=== PATIENT | male | born 1980 | race Caucasian/White ===

== ENCOUNTER 2021-06-30 13:13 | Emergency (ER) | payer OTHER, SELFPAY ==
--- NOTE | ~2021-06-30 | CT_ITS ---
EXAMINATION: CT abdomen pelvis wo con DATE: 06/30/2021 16:54 INDICATION: Bilateral flank pain. Kidney stone. TECHNIQUE: Computed tomography (CT) of the abdomen and pelvis was performed without intravenous contr ast. Automated exposure control and iterative reconstruction technique were employed. The dose-length product was 333.16 mGy-cm. COMPARISON: None. FINDINGS: The visualized portions of the lung bases demonstrate a calcified right lower lobe nodule a nd calcified paraesophageal lymph node, consistent with old granulomatous disease. No pleural effusio n. The heart size is normal. No pericardial effusion. The liver, gallbladder, spleen, pancreas, adren al glands, and left kidney are normal. There is a 5 mm stone in right kidney. No hydronephrosis. Ther e are no dilated loops of bowel. The appendix is normal. There are no pathologically enlarged lymph n odes. There is no free intraperitoneal fluid. There is moderate lumbar spondylosis. There is a chroni c left L5 pars defect. IMPRESSION: 1. 5 mm nonobstructing right kidney stone. Reviewed, dictated and finalized at location A.
[2021-06-30 13:33] LABS: Basophils Percent Auto 0.5 % (0.2-1.2); Eosinophils Absolute Auto 0.1 K/mm3 (0-0.3); Eosinophils Percent Auto 1.5 % (0-4.4); Hematocrit 48.7 % (42.0-52.0); Hemoglobin 16.1 g/dL (14.0-18.0); Immature Granulocyte Absolute 0.04 K/mm3 (0.00-0.031); Immature Granulocyte Percent A 0.5 % (0-0.5); Lymphocytes Absolute Auto 2.24 K/mm3 (0.9-3.2); Lymphocytes Percent Auto 28.1 % (18.3-44.2); Mean Corpuscular HGB Conc 33.1 g/dl (32-36); Mean Corpuscular Hemoglobin 29.9 pg (26-34); Mean Corpuscular Volume 90.5 fl (80-100); Mean Platelet Volume 8.5 fl (7.4-10.4); Monocytes Absolute Auto 0.5 K/mm3 (0.1-0.6); Monocytes Percent Auto 6.8 % (2.6-8.5); Neutrophils Percent Auto 62.6 % (45.5-73.1); Platelet Count Result 206 k/mm3 (150-375); Red Blood Count 5.38 M/mm3 (4.6-6.20); Red Cell Distribution Width 13.2 % (11.5-14.5)
[2021-06-30 13:35] VITALS: BP 136/96; PULSE 57; RESP 14; TEMP 37; O2SAT 99
[2021-06-30 13:55] LABS: Add Urine Microscopic? YES; Appearance Urine Clear (Clear); Bilirubin Urine Negative (Negative); Blood Urine Negative (Negative); Color Urine Yellow (Yellow); Glucose Urine UA Negative (Negative); Ketones Urine Negative (Negative); Leukocyte Esterase Ur Negative LEU/UL (Negative); Mucus Urine Rare /lpf; Nitrate Urine Negative (Negative); Protein Urine Negative (Negative); RBC Urine 0-2 /hpf (0-2); Squamous Epithelial Cell Urine Rare /hpf (Few); WBC Urine 0-3 /hpf
[2021-06-30 14:16] LABS: Anion Gap 8 mmol/L (8-16); Blood Urea Nitrogen 20 mg/dL (9-20); Calcium 9.6 mg/dL (8.4-10.2); Carbon Dioxide 26 mmol/L (22-30); Chloride 105 mmol/L (98-107); Estimated CRCL calculation 110 ml/min; Estimated Glomerular Filt Rate > 60; Glucose 95 mg/dL (65-110); Potassium 4.3 mmol/L (3.4-5.0); Sodium 139 mmol/L (137-145)
[2021-06-30 16:34] VITALS: BP 141/95; PULSE 58; RESP 18; O2SAT 99
--- NOTE | 2021-06-30 16:48 | PC.NURSE ---
Pt taken to CT at this time
--- NOTE | 2021-06-30 17:34 | ED.ABDPAIN ---
HPI - Abdominal Pain General Chief Complaint: Abdominal Pain Stated Complaint: abd pain Time Seen by Provider: 06/30/21 16:40 Source: patient Mode of arrival: ambulatory Limitations: no limitations History of Present Illness HPI narrative: Patient is 41 years old white male presented to the ED with diffuse pain on the right flank area started 2 weeks ago, gradually started going to the left flank area, positional, worse with certain movement, better with certain position, associated with nausea. Patient denies any fever, chills, vomiting, urinary symptoms. 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 Patient is a smoker, denies any drinking or using drugs. History of depression and benign prostatic hypertrophy. 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 Related Data Home Medications Medication Instructions Recorded Confirmed buprenorphine-naloxone film 06/30/21 escitalopram oxalate mg 06/30/21 fluconazole 06/30/21 Allergies Allergy/AdvReac Type Severity Reaction Status Date / Time No Known Allergies Allergy Verified 06/30/21 16:36 Review of Systems Review of Systems: CONSTITUTIONAL: Denies fever, chills, or sweats. EYES: Denies visual changes, redness, or discharge. ENT: Denies rhinorrhea, congestion, sore throat, or otalgia. CARDIOVASCULAR: Denies chest pain, palpitations, or edema. RESPIRATORY: Denies cough or dyspnea. GASTROINTESTINAL: Denies abdominal pain, nausea, vomiting, or diarrhea. GENITOURINARY: Denies dysuria or hematuria. SKIN: Denies rash or itching. MUSCULOSKELETAL: Denies back pain, joint pain, or myalgia. NEUROLOGIC: Denies headache, numbness, or weakness. PSYCHIATRIC: Denies anxiety or depression. Exam Narrative: General appearance: Well-developed, well-nourished Skin: Normal color Head: Normocephalic, nontraumatic Eyes: Clear conjunctiva ENT: Oropharynx normal, ears normal, nose normal Neck: Supple, nontender Chest and respiratory: Airway patent, no respiratory distress, no accessory muscle use Heart: Regular rate/rhythm Abdomen: Soft, diffuse abdominal tenderness, slight guarding, no rebound, quiet bowel sounds, mild tenderness right flank. And also across lumbar area. No bruises, no swelling, no rash Vascular: Normal peripheral pulses, normal capillary refill. Musculoskeletal: Normal range of motion, nontender back Neurologic: Alert and oriented ?3, NUCLEAR MEDICINE CHIEF TECHNOLOGIST is normal as tested, no gross motor deficit Course Course Emergency Course: Stable Vital Signs Vital signs: Vital Signs Temperature 37.0 C 06/30/21 13:35 Pulse Rate 57 L 06/30/21 13:35 Respiratory Rate 14 06/30/21 13:35 Blood Pressure 136/96 H 06/30/21 13:35 Pulse Oximetry 99 06/30/21 13:35 Temperature 37.0 C 06/30/21 13:35 Pulse Rate 58 L 06/30/21 16:34 Respiratory Rate 18 06/30/21 16:34 Blood Pressure 141/95 H 06/30/21 16:34 Pulse Oximetry 99 06/30/21 16:34 MDM - Abdominal Pain MDM Narrative Medical decision making narrative: My differential diagnosis of musculoskeletal pain, urinary tract infection, diverticulitis, intra-abdominal pathology. Labs, IV fluid, CT abdomen pelvis without contrast ordered. Further plan to follow. Work-up, UA, CT abdomen pelvis showed no acute abnormality to explain patient condition. Musculoskeletal pain is my diagnosis, patient works in [employer] with a lot of physical activity and work. Differential Diagnosis Differential diagnosis: Likely abdominal pain, calculus of kidney, constipation, diverticulitis and pancreatitis Lab Data Result diagrams: 06/30/21 13:26 06/30/21 13:26 Labs: Lab Results 06/30/21 06/30/21 06/30/21 Range/Units 13:26 13:26 13:3
[2021-06-30 18:09] VITALS: BP 142/95; PULSE 58; RESP 18; O2SAT 99
== END 2021-06-30 18:11 | disposition home or self-care (01) ==
PROVIDERS: Emergency Medicine; Emergency Provider Emergency Medicine
DX: M54.9 Dorsalgia, unspecified (principal); N40.0 Benign prostatic hyperplasia without lower urinary tract symptoms; F32.9 Major depressive disorder, single episode, unspecified; F17.200 Nicotine dependence, unspecified, uncomplicated; N20.0 Calculus of kidney
CPT/HCPCS: 36415; 74176; 80048; 81001; 85025; 99284

== ENCOUNTER 2021-09-17 10:15 | Emergency (ER) | payer OTHER, SELFPAY ==
--- NOTE | ~2021-09-17 | XR_ITS ---
EXAMINATION: XR finger 4th LT min 2V DATE: 09/17/2021 10:35 INDICATION: Laceration to the left fourth digit TECHNIQUE: Dorsal palmar, lateral and 2 oblique views of the left fourth digit were obtained COMPARISON: None FINDINGS: Alignment is normal. No fracture. Joint spaces are normal. Soft tissue swelling about the base of the fourth digit with surrounding bandaging material. No radiopaque foreign bodies. IMPRESSION: 1. No osseous abnormality or radiopaque foreign body Reviewed, dictated and finalized at location A.
[2021-09-17 10:18] VITALS: BP 138/90; PULSE 89; RESP 18; TEMP 36.4; O2SAT 98
[2021-09-17] MEDS: IBUPROFEN 600 MG TABLET PO (10:44)
--- NOTE | 2021-09-17 11:59 | ED.GENADULT ---
HPI - General Adult General Chief complaint: Wound/Laceration <DEIDRE Nichols Last Filed: 09/17/21 12:08> Stated complaint: logsplitter injury <DEIDRE Nichols Last Filed: 09/17/21 12:08> Time Seen by Provider: 09/17/21 10:25 <DEIDRE Nichols Last Filed: 09/17/21 12:08> Source: patient and RN notes reviewed <DEIDRE Nichols Last Filed: 09/17/21 12:08> Mode of arrival: ambulatory <DEIDRE Nichols Last Filed: 09/17/21 12:08> Limitations: no limitations <DEIDRE Nichols Last Filed: 09/17/21 12:08> History of Present Illness HPI narrative: Patient is a 41-year-old male who presents to emergency department for evaluation of injury to the left ring finger that occurred just prior to arrival he had his finger caught in a log splitter sustaining laceration patient notes his tetanus is not up-to-date he notes pain involving the ring finger and just proximal of the ring finger on the palmar and dorsal surfaces patient denies other injuries or complaints presents nondistressed has not had anything for pain is requesting nonnarcotic pain medication with history of IV opiate abuse <DEIDRE Nichols Last Filed: 09/17/21 12:08> Related Data Home medications: Home Medications Medication Instructions Recorded Confirmed buprenorphine-naloxone film 06/30/21 escitalopram oxalate mg 06/30/21 fluconazole 06/30/21 <DEIDRE Nichols Last Filed: 09/17/21 12:08> Allergies/adverse reactions: Allergies Allergy/AdvReac Type Severity Reaction Status Date / Time No Known Allergies Allergy Verified 06/30/21 16:36 <DEIDRE Nichols Last Filed: 09/17/21 12:08> Review of Systems Review of Systems: All systems reviewed & are unremarkable except as noted in HPI and below <DEIDRE Nichols Last Filed: 09/17/21 12:08> Exam Narrative: GENERAL: Well-appearing, well-nourished, and in no acute distress. HEAD: Normocephalic, atraumatic. EYES: PERRLA and EOMI. ENT: Nares clear, no rhinorrhea or epistaxis. Mucous membranes moist. EXTREMITIES: Normal range of motion. No edema. Patient is able to extend and flex the ring finger without difficulty patient with flap laceration dorsal surface of the left ring finger proximal phalanx patient notes some numbness but is neurovascularly intact on exam he also has a sprain SKIN: Warm, dry, no rash. Flap laceration proximal phalanx left ring finger NEURO: No focal deficits. Alert and oriented x3. Cranial nerves II through XII grossly intact. Neurovascularly intact PSYCH: Normal mood and affect. <Fernie Leal PA-C - Last Filed: 09/17/21 12:08> Course Course Emergency Course: Patient in the room nondistressed his wound was closed discussion was made with hand surgeon he will follow-up with hand surgery this Wednesday he is aware of case findings treatment plan and diagnosis he will be referred to hand surgeon for possible tendon injury even though he is able to flex and extend it does look like there was possible involvement of the extensor tendon. Provided with reasons to return tetanus was updated <Fernie Leal PA-C - Last Filed: 09/17/21 12:08> Consultations Consultation #1: Discussed case with the Dr. Whyte the hand surgeon and will follow patient in clinic on Wednesday <DEIDRE Nichols Last Filed: 09/17/21 12:08> Date: 09/17/21 <DEIDRE Nichols Last Filed: 09/17/21 12:08> Time: 12:05 <DEIDRE Nichols Last Filed: 09/17/21 12:08> Vital Signs Vital signs: Vital Signs Temperature 97.6 F 09/17/21 10:18 Pulse Rate 89 09/17/21 10:18 Respiratory Rate 18 09/17/21 10:18 Blood Pressure 138/90 09/17/21 10:18 Pulse Oximetry 98 09/17/21 10:18 Temperature 97.6 F 09/17/21 10:18 Pulse Rate 58 L 09/17/21 12:42 Respiratory Rate 18 09/17/21 12:42 Blood Pressure 126/89 09/17/21 12:42 Pul
[2021-09-17] MEDS: TETANUS,DIPHTHERIA,AC PERTUSSIS ADULT (0.5 ML) BOOSTRIX IM (12:37)
[2021-09-17 12:42] VITALS: BP 126/89; PULSE 58; RESP 18; O2SAT 98
== END 2021-09-17 12:44 | disposition home or self-care (01) ==
PROVIDERS: Emergency Provider General Practice
DX: S61.215A Laceration without foreign body of left ring finger without damage to nail, initial encounter (principal); W30.89XA Contact with other specified agricultural machinery, initial encounter; Z23 Encounter for immunization
CPT/HCPCS: 12001; 73140; 90471; 90715; 99283; A9270

== ENCOUNTER 2022-03-14 12:19 | Emergency (ER) | payer OTHER, SELFPAY ==
--- NOTE | ~2022-03-14 | CT_ITS ---
EXAMINATION: CT abdomen pelvis w con DATE: 03/14/2022 13:55 INDICATION: Left lower quadrant abdominal pain. TECHNIQUE: Computed tomography (CT) of the abdomen and pelvis was performed with 100 mL Omnipaque 350 intravenous contrast. Automated exposure control and iterative reconstruction technique were employe d. The dose-length product was 748.54 mGy-cm. COMPARISON: CT abdomen and pelvis 06/30/2021 FINDINGS: The portions of the lung bases demonstrate mild atelectasis. No pleural effusion. The heart size is normal. No pericardial effusion. The liver, gallbladder, spleen, pancreas, and adrenal gland s are normal. There are cysts in the kidneys measuring up to 7 mm on the left. There are two 3 mm sto julianna in right kidney. There are no dilated loops of bowel. The appendix is normal. There are no pathol ogically enlarged lymph nodes. There is no free intraperitoneal fluid. There is moderate lumbar spond ylosis and mild thoracic spondylosis. There is a chronic left L5 pars defect. IMPRESSION: 1. Nonobstructing right kidney stones. Reviewed, dictated and finalized at location A.
[2022-03-14 12:24] VITALS: BP 126/94; PULSE 69; RESP 16; TEMP 36.1; O2SAT 99
[2022-03-14 12:50] LABS: Basophils Percent Auto 0.4 % (0.2-1.2); Eosinophils Absolute Auto 0.1 K/mm3 (0-0.3); Eosinophils Percent Auto 1.8 % (0-4.4); Hematocrit 46.1 % (42.0-52.0); Hemoglobin 15.8 g/dL (14.0-18.0); Immature Granulocyte Absolute 0.02 K/mm3 (0.00-0.031); Immature Granulocyte Percent A 0.3 % (0-0.5); Lymphocytes Absolute Auto 1.57 K/mm3 (0.9-3.2); Lymphocytes Percent Auto 20.4 % (18.3-44.2); Mean Corpuscular HGB Conc 34.3 g/dl (32-36); Mean Corpuscular Hemoglobin 30.5 pg (26-34); Mean Platelet Volume 8.4 fl (7.4-10.4); Monocytes Absolute Auto 0.5 K/mm3 (0.1-0.6); Monocytes Percent Auto 6.7 % (2.6-8.5); Neutrophils Absolute Auto 5.4 K/mm3 (1.3-6.7); Neutrophils Percent Auto 70.4 % (45.5-73.1); Platelet Count Result 238 k/mm3 (150-375); Red Blood Count 5.18 M/mm3 (4.6-6.20); Red Cell Distribution Width 12.6 % (11.5-14.5); White Blood Count 7.7 K/mm3 (4.5-10.0)
[2022-03-14 12:58] LABS: Appearance Urine Clear (Clear); Bilirubin Urine Negative (Negative); Blood Urine Negative (Negative); Color Urine Yellow (Yellow); Glucose Urine UA Negative (Negative); Ketones Urine Negative (Negative); Leukocyte Esterase Ur Negative LEU/UL (Negative); Nitrate Urine Negative (Negative); Protein Urine Negative (Negative); Urobilinogen Urine 0.2 mg/dL (<2.0)
[2022-03-14 13:00] LABS: Alanine Aminotransferase 16 U/L (4-50); Albumin Level 4.4 g/dL (3.5-5.1); Alkaline Phosphatase 80 U/L (38-126); Anion Gap 5 mmol/L (8-16); Aspartate Amino Transferase 27 U/L (17-59); Bilirubin,Total 0.5 mg/dL (0.2-1.3); Blood Urea Nitrogen 17 mg/dL (9-20); Calcium 8.8 mg/dL (8.4-10.2); Carbon Dioxide 31 mmol/L (22-30); Chloride 101 mmol/L (98-107); Estimated CRCL calculation 122 ml/min; Estimated Glomerular Filt Rate > 60; Glucose 99 mg/dL (65-110); Lipase 45 U/L (23-300); Potassium 3.9 mmol/L (3.4-5.0); Sodium 137 mmol/L (137-145)
--- NOTE | 2022-03-14 13:15 | ED.ABDPAIN ---
HPI - Abdominal Pain General Chief Complaint: Abdominal Pain <DEIDRE Raymond Last Filed: 03/14/22 15:37> Stated Complaint: abdominal pain <DEIDRE Raymond Last Filed: 03/14/22 15:37> Time Seen by Provider: 03/14/22 12:31 <DEIDRE Raymond Last Filed: 03/14/22 15:37> Source: patient <DEIDRE Raymond Last Filed: 03/14/22 15:37> Mode of arrival: ambulatory <DEIDRE Raymond Last Filed: 03/14/22 15:37> Limitations: no limitations <DEIDRE Raymond Last Filed: 03/14/22 15:37> History of Present Illness HPI narrative: This is a 42-year-old male that presents to the emergency department for abdominal pain. Ongoing over the last hour and a half. Reports diffuse, crampy abdominal pain. This has improved since onset. Denies fever, vomiting, dysuria, hematochezia, diarrhea, or hematuria. <DEIDRE Raymond Last Filed: 03/14/22 15:37> Related Data Home Medications: Home Medications Medication Instructions Recorded Confirmed buprenorphine-naloxone film 06/30/21 escitalopram oxalate mg 06/30/21 fluconazole 06/30/21 <Carmen Lucas PA-C - Last Filed: 03/14/22 15:37> Allergies/Adverse Reactions: Allergies Allergy/AdvReac Type Severity Reaction Status Date / Time No Known Allergies Allergy Verified 03/14/22 13:00 <DEIDRE Raymond Last Filed: 03/14/22 15:37> Review of Systems Review of Systems: CONSTITUTIONAL: Denies fever GASTROINTESTINAL: Reports abdominal pain. Denies nausea, vomiting, or diarrhea. GENITOURINARY: Denies dysuria or hematuria. <DEIDRE Raymond Last Filed: 03/14/22 15:37> All systems reviewed & are unremarkable except as noted in HPI and below <DEIDRE Raymond Last Filed: 03/14/22 15:37> [facility] Past Medical History Medical History: Medical History (Updated 03/14/22 @ 15:37 by Carmen Lucas PA-C) History of anxiety <Carmen Lucas PA-C - Last Filed: 03/14/22 15:37> Social History Social History: Social History (Updated 03/14/22 @ 13:18 by Carmen Lucas PA-C) Substance use: former <Carmen Lucas PA-C - Last Filed: 03/14/22 15:37> Exam Narrative: GENERAL: Well-appearing, well-nourished, and in no acute distress. HEAD: Normocephalic, atraumatic. EYES: EOMI. CHEST: Clear to auscultation. No respiratory distress. No wheezes rales or rhonchi HEART: Regular rate and rhythm. No murmur heard. Normal peripheral pulses. ABDOMEN: Soft, nondistended, normal active bowel sounds. Mild tenderness to palpation throughout the abdomen, without guarding. No CVA tenderness EXTREMITIES: Normal range of motion. No edema. SKIN: Warm, dry, no rash. NEURO: No focal deficits. Alert and oriented x3. PSYCH: Normal mood and affect <Carmen Lucas PA-C - Last Filed: 03/14/22 15:37> Course RADIO FREQUENCY ENGINEER/PA Physician Supervision I did not see this patient nor was the care plan discussed with me, labs and imaging reviewed. I was available for evaluation and consultation, I agree with the documentation <Paul Ravi MD - Last Filed: 03/14/22 16:45> Vital Signs Vital signs: Vital Signs Temperature 36.1 C L 03/14/22 12:24 Pulse Rate 69 03/14/22 12:24 Respiratory Rate 16 03/14/22 12:24 Blood Pressure 126/94 H 03/14/22 12:24 Pulse Oximetry 99 03/14/22 12:24 Temperature 36.1 C L 03/14/22 12:24 Pulse Rate 70 03/14/22 14:49 Respiratory Rate 18 03/14/22 14:49 Blood Pressure 142/109 H 03/14/22 14:49 Pulse Oximetry 100 03/14/22 14:49 <Carmen Lucas PA-C - Last Filed: 03/14/22 15:37> Vital Signs Temperature 36.1 C L 03/14/22 12:24 Pulse Rate 69 03/14/22 12:24 Respiratory Rate 16 03/14/22 12:24 Blood Pressure 126/94 H 03/14/22 12:24 Pulse Oximetry 99 03/14/22 12:24 Temperature 36.1 C L 03/14/22 12:24 Pulse Rate 70 03/14/22 14:49 Respiratory Rate 18 03/14/22 14:49 Blood Pressure 142/1
[2022-03-14 13:28] LABS: Add Urine Microscopic? NO
[2022-03-14] MEDS: SODIUM CHLORIDE 0.9% IV 1,000 ML 999 ML IV CONT (13:39)
[2022-03-14] MEDS: ONDANSETRON INJ 4 MG/2 ML VIAL IV PUSH (13:40)
[2022-03-14] MEDS: PANTOPRAZOLE SODIUM IV 40 MG VIAL IV PUSH (13:44)
[2022-03-14 14:49] VITALS: BP 142/109; PULSE 70; RESP 18; O2SAT 100
== END 2022-03-14 15:47 | disposition home or self-care (01) ==
PROVIDERS: Physician Assistant; Emergency Provider Emergency Medicine
DX: R10.84 Generalized abdominal pain (principal); F41.9 Anxiety disorder, unspecified; N20.0 Calculus of kidney
CPT/HCPCS: 36415; 74177; 80053; 81003; 83690; 85025; 96361; 96365; 96375; 99284; C9113; J0131; J2405; J7030; Q9967

== ENCOUNTER 2022-06-09 19:52 | Emergency (ER) | payer OTHER, SELFPAY ==
[2022-06-09 20:00] VITALS: BP 149/100; PULSE 95; RESP 18; TEMP 36.6; O2SAT 97
--- NOTE | 2022-06-09 20:36 | ED.ALLEREA ---
HPI - Allergic Reaction General Chief complaint: Allergic Reaction Stated complaint: wasp sting Time Seen by Provider: 06/09/22 19:56 Source: patient and RN notes reviewed Mode of arrival: ambulatory Limitations: no limitations History of Present Illness MD complaint: allergic reaction (due to wasp sting) Onset (ago): hour(s) (3) Exposure: insect bite Symptoms: itching Severity: mild Treatment prior to arrival: none Previous Allergic Reaction History: other (local redness due to wasp sting) Related Data Home Medications Medication Instructions Recorded Confirmed escitalopram oxalate 10 mg tablet 10 mg PO DAILY 06/30/21 06/09/22 buprenorphine 4 mg-naloxone 1 mg 1 film buccal DAILY 06/09/22 06/09/22 sublingual film hydroxyzine pamoate 25 mg capsule 1 cap PO DAILY 06/09/22 06/09/22 tamsulosin 0.4 mg capsule 2 cap PO DAILY 06/09/22 06/09/22 Allergies Allergy/AdvReac Type Severity Reaction Status Date / Time No Known Allergies Allergy Verified 03/14/22 13:00 Review of Systems Review of Systems: All systems reviewed & are unremarkable except as noted in HPI and below Constitutional: Constitutional: Reports no additional constitutional complaints Eyes: Eyes: Reports no additional eye complaints ENT: Reports system reviewed and no additional complaints, except as documented Cardiovascular: Cardiovascular: Reports no additional cardiovascular complaints Respiratory: Respiratory: Reports no additional respiratory complaints Gastrointestinal: Gastrointestinal: Reports no additional gastrointestinal complaints Musculoskeletal: Musculoskeletal: Reports no additional musculoskeletal complaints Integumentary/Breasts: Skin/Breast: Reports system reviewed and no additional complaints, except as docu Neurologic: Reports system reviewed and no additional complaints, except as documented Psychiatric: Psychiatric: Reports no additional psychiatric complaints Endocrine: Endocrine: Reports no additional endocrine complaints Hematologic/Lymphatic: Hematologic/Lymphatic: Reports no additional hematologic/lymphatic complaints Allergic/Immunologic: Allergic/Immunologic: Reports no additional allergic/immunologic complaints PMFSH Past Medical History Medical History Allergic History of anxiety Social History Social History Substance use: former Exam Const: General: healthy appearing and no acute distress Nutritional Appearance: well nourished Orientation/consciousness: patient oriented x3 Limitations: no limitations HENMT: Head: normal to inspection Ears: external ears normal, TM's normal bilaterally and EAC's normal General nose exam: Normal external nose present and Normal nares present Face and sinus: normal facial exam and sinuses nontender Mouth: Yes Normal oral and palatal mucosa present and Yes moist mucous membranes Teeth and gingiva: dentition normal Throat: posterior oropharynx normal Eyes: Conjunctivae: conjunctivae normal Pupils: Equal, round and reactive pupils present EOM: EOMs intact bilaterally Neck: Neck: normal visual inspection, no lymphadenopathy and no meningeal signs Chest: Chest palpation & inspection: normal inspection of the chest Resp: Effort & Inspection: normal respiratory effort Auscultation: clear to auscultation bilaterally Cardio: Rate: regular rate Rhythm: regular rhythm GI: GI Palp: Yes Soft to palpation and No Tenderness to palpation present (GI) Auscultation: normal bowel sounds : General: Yes bladder normal to palpation and Yes no CVA tenderness Back/Spine/Pelvis: Back: no CVA tenderness Skin: General skin exam: normal color Rashes: no rashes Wounds: no wounds Other: right posterior shoulder localized redness with minimal swelling Neuro: General: patient oriented x3, moves all extremities, no meningeal signs, no focal motor deficits and CN'
[2022-06-09] MEDS: diphenhydrAMINE HCl CAP 25 MG CAPSULE PO (20:41)
[2022-06-09] MEDS: methylPREDNISolone SOD SUCC 125 MG VIAL IM (20:41)
[2022-06-09] MEDS: EPINEPHrine HCL INJ 1 MG/ML AMPUL 0.3 MG SUB-Q (20:45)
[2022-06-09 20:53] VITALS: BP 130/74; PULSE 85; RESP 20; TEMP 36.6; O2SAT 99
== END 2022-06-09 21:00 | disposition home or self-care (01) ==
PROVIDERS: Emergency Provider Emergency Medicine
DX: T78.40XA Allergy, unspecified, initial encounter (principal); W57.XXXA Bitten or stung by nonvenomous insect and other nonvenomous arthropods, initial encounter
CPT/HCPCS: 96372; 99284; A9270; J0171; J2930

== ENCOUNTER 2022-07-06 10:25 | Emergency (ER) | payer OTHER, SELFPAY ==
[2022-07-06] VITALS (13 sets, daily range): BP systolic 101–125; BP diastolic 63–90; PULSE 42–83; RESP 15–19; TEMP 36.8; O2SAT 97–100
[2022-07-06] MEDS: FAMOTIDINE 20 MG/2 ML VIAL IV PUSH (10:36)
[2022-07-06] MEDS: methylPREDNISolone SOD SUCC 125 MG VIAL IV PUSH (10:36)
[2022-07-06] MEDS: diphenhydrAMINE HCl INJ 50 MG/ML VIAL 25 MG IV PUSH (10:36)
[2022-07-06] MEDS: EPINEPHrine HCL INJ 1 MG/ML AMPUL 0.3 MG IM (10:36)
--- NOTE | 2022-07-06 11:10 | ED.GENADULT ---
HPI - General Adult General Chief complaint: Allergic Reaction Stated complaint: bee sting Time Seen by Provider: 07/06/22 10:38 History of Present Illness HPI narrative: Patient 42-year-old gentleman who presents emerged department with chief complaint of allergic reaction. The patient reports he was stung by several wasps and reports he started having pain and itching over his body. Patient states he has multiple areas of urticaria and reports that he felt a little bit of swelling in his mouth. Patient states that he has no shortness of breath and no wheezing at this time. The patient states he had multiple episodes before where he is required epinephrine. Related Data Home Medications Medication Instructions Recorded Confirmed escitalopram oxalate 10 mg tablet 10 mg PO DAILY 06/30/21 06/09/22 buprenorphine 4 mg-naloxone 1 mg 1 film buccal DAILY 06/09/22 06/09/22 sublingual film hydroxyzine pamoate 25 mg capsule 1 cap PO DAILY 06/09/22 06/09/22 tamsulosin 0.4 mg capsule 2 cap PO DAILY 06/09/22 06/09/22 Allergies Allergy/AdvReac Type Severity Reaction Status Date / Time No Known Allergies Allergy Verified 07/06/22 10:45 Review of Systems Review of Systems: A 10 system review of systems was completed on the patient and is negative except for what is stated in the HPI. Nursing and ancillary documentation was reviewed. [facility] Past Medical History Medical History Allergic History of anxiety Social History Social History Substance use: former Exam Narrative: GENERAL: Well-appearing, well-nourished, and in no acute distress. HEAD: Normocephalic, atraumatic. EYES: PERRLA and EOMI. ENT: Nares clear, no rhinorrhea or epistaxis. Mucous membranes moist. NECK: Supple. CHEST: Clear to auscultation. No respiratory distress. HEART: Regular rate and rhythm. No murmur heard. Normal peripheral pulses. ABDOMEN: Soft, nontender, nondistended, normal active bowel sounds. EXTREMITIES: Normal range of motion. No edema. SKIN: Warm, dry, urticaria present in areas of insect stings.. NEURO: No focal deficits. Alert and oriented x3. PSYCH: Normal mood and affect. Course Vital Signs Vital signs: Vital Signs Temperature 36.8 C 07/06/22 10:41 Pulse Rate 83 07/06/22 10:41 Respiratory Rate 18 07/06/22 10:41 Blood Pressure 125/86 07/06/22 10:41 Pulse Oximetry 97 07/06/22 10:41 Oxygen Delivery Room Air 07/06/22 10:41 Temperature 36.8 C 07/06/22 10:41 Pulse Rate 62 07/06/22 13:00 Respiratory Rate 18 07/06/22 13:45 Blood Pressure 114/87 07/06/22 13:45 Pulse Oximetry 97 07/06/22 12:15 Oxygen Delivery Room Air 07/06/22 10:41 Medical Decision Making Vital Signs Vital Signs: Vital Signs Temperature 36.8 C 07/06/22 10:41 Pulse Rate 83 07/06/22 10:41 Respiratory Rate 18 07/06/22 10:41 Blood Pressure 125/86 07/06/22 10:41 Pulse Oximetry 97 07/06/22 10:41 Oxygen Delivery Room Air 07/06/22 10:41 Temperature 36.8 C 07/06/22 10:41 Pulse Rate 62 07/06/22 13:00 Respiratory Rate 18 07/06/22 13:45 Blood Pressure 114/87 07/06/22 13:45 Pulse Oximetry 97 07/06/22 12:15 Oxygen Delivery Room Air 07/06/22 10:41 Critical Care Time Critical Care Time Critical Care Time: Yes Total Critical Care Time: 30 Discharge Plan Discharge Clinical Impression: Allergic reaction Patient Disposition: Home, Self-Care Condition: Stable Instructions: Insect Bite or Sting (ED), Anaphylaxis (ED), Antibiotic Form Prescriptions: New epinephrine 0.3 mg/0.3 mL auto-injector 0.3 mg IM Q5-15M PRN (Reason: hypersensitivity reaction) Qty: 2 0RF Rx Instructions: do not exceed 3 doses per episode prednisone 20 mg tablet 40 mg PO DAILY 5 Days Qty: 10 0RF No Action tamsulosin 0.4 mg capsule 2 cap PO
== END 2022-07-06 14:28 | disposition home or self-care (01) ==
PROVIDERS: Emergency Provider Emergency Medicine
DX: T63.461A Toxic effect of venom of wasps, accidental (unintentional), initial encounter (principal); F41.9 Anxiety disorder, unspecified
CPT/HCPCS: 96372; 96374; 96375; 99284; J0171; J1200; J2930

== ENCOUNTER 2024-09-01 02:11 | Emergency (ER) | payer OTHER, SELFPAY ==
[2024-09-01 02:15] VITALS: BP 145/99; PULSE 75; RESP 18; TEMP 36.4; O2SAT 99
--- NOTE | 2024-09-01 03:27 | ED.GENADULT ---
HPI - General Adult General Chief complaint: Skin/Abscess/Foreign Body Stated complaint: Infection in pec, 2 days ago Time Seen by Provider: 09/01/24 03:07 History of Present Illness HPI narrative: Patient is a 40 for old gentleman who presents emergency department with chief complaint of skin infection on his chest wall. The patient reports that he noticed for about 2-3 days there has been redness around the left areola patient reports no drainage denies fever reports no trauma to the area. Related Data Home Medications Medication Instructions Recorded Confirmed escitalopram oxalate 10 mg tablet 10 mg PO DAILY 06/30/21 06/09/22 buprenorphine 4 mg-naloxone 1 mg 1 film buccal DAILY 06/09/22 06/09/22 sublingual film hydroxyzine pamoate 25 mg capsule 1 cap PO DAILY 06/09/22 06/09/22 tamsulosin 0.4 mg capsule 2 cap PO DAILY 06/09/22 06/09/22 Allergies Allergy/AdvReac Type Severity Reaction Status Date / Time No Known Allergies Allergy Verified 07/06/22 10:45 Review of Systems Review of Systems: A 10 system review of systems was completed on the patient and is negative except for what is stated in the HPI. Nursing and ancillary documentation was reviewed. [facility] Past Medical History Medical History Allergic History of anxiety Social History Social History Substance use: former Exam Narrative: GENERAL: Well-appearing, well-nourished, and in no acute distress. HEAD: Normocephalic, atraumatic. EYES: PERRLA and EOMI. ENT: Nares clear, no rhinorrhea or epistaxis. Mucous membranes moist. NECK: Supple. CHEST: Clear to auscultation. No respiratory distress. There is redness around the left areola there is no crepitance there is induration there is no fluctuance HEART: Regular rate and rhythm. No murmur heard. Normal peripheral pulses. ABDOMEN: Soft, nontender, nondistended, normal active bowel sounds. EXTREMITIES: Normal range of motion. No edema. SKIN: Warm, dry, no rash. NEURO: No focal deficits. Alert and oriented x3. PSYCH: Normal mood and affect. Course Vital Signs Vital signs: Vital Signs Temperature 36.4 C 09/01/24 02:15 Pulse Rate 75 09/01/24 02:15 Respiratory Rate 18 09/01/24 02:15 Blood Pressure 145/99 H 09/01/24 02:15 Pulse Oximetry 99 09/01/24 02:15 Oxygen Delivery Room Air 09/01/24 02:15 Temperature 36.4 C 09/01/24 02:15 Pulse Rate 75 09/01/24 02:15 Respiratory Rate 18 09/01/24 02:15 Blood Pressure 145/99 H 09/01/24 02:15 Pulse Oximetry 99 09/01/24 02:15 Oxygen Delivery Room Air 09/01/24 02:15 Medical Decision Making MDM Narrative Medical decision making narrative: Differential diagnosis includes cellulitis, abscess, UTI, renal failure, Laboratory studies were obtained showed white count 10.2 electrolytes are within normal limits urinalysis showed no evidence UTI Patient shows besides the of sepsis there is no appreciable drainable abscess only induration Patient was started on Bactrim Keflex will be discharged home Vital Signs Vital Signs: Vital Signs Temperature 36.4 C 09/01/24 02:15 Pulse Rate 75 09/01/24 02:15 Respiratory Rate 18 09/01/24 02:15 Blood Pressure 145/99 H 09/01/24 02:15 Pulse Oximetry 99 09/01/24 02:15 Oxygen Delivery Room Air 09/01/24 02:15 Temperature 36.4 C 09/01/24 02:15 Pulse Rate 75 09/01/24 02:15 Respiratory Rate 18 09/01/24 02:15 Blood Pressure 145/99 H 09/01/24 02:15 Pulse Oximetry 99 09/01/24 02:15 Oxygen Delivery Room Air 09/01/24 02:15 Lab Data 09/01/24 03:26 09/01/24 03:26 Labs: Lab Results 09/01/24 Range/Units 03:26 WBC 10.2 H (4.5-10.0) K/mm3 RBC 5.23 (4.6-6.20) M/mm3 Hgb 15.8 (14.0-18.0) g/dL Hct 47.1 (42.0-52.0) % MCV 90.1 (80-100) fl MCH 30.2 (26-34) pg
[2024-09-01 03:32] LABS: Basophils Percent Auto 0.4 % (0.2-1.2); Eosinophils Absolute Auto 0.1 K/mm3 (0-0.3); Eosinophils Percent Auto 1.4 % (0-4.4); Hematocrit 47.1 % (42.0-52.0); Hemoglobin 15.8 g/dL (14.0-18.0); Immature Granulocyte Absolute 0.03 K/mm3 (0.00-0.031); Immature Granulocyte Percent A 0.3 % (0-0.5); Lymphocytes Absolute Auto 2.01 K/mm3 (0.9-3.2); Lymphocytes Percent Auto 19.7 % (18.3-44.2); Mean Corpuscular HGB Conc 33.5 g/dl (32-36); Mean Corpuscular Hemoglobin 30.2 pg (26-34); Mean Corpuscular Volume 90.1 fl (80-100); Mean Platelet Volume 8.6 fl (7.4-10.4); Monocytes Absolute Auto 0.7 K/mm3 (0.1-0.6); Monocytes Percent Auto 6.9 % (2.6-8.5); Neutrophils Absolute Auto 7.3 K/mm3 (1.3-6.7); Neutrophils Percent Auto 71.3 % (45.5-73.1); Platelet Count Result 234 k/mm3 (150-375); Red Blood Count 5.23 M/mm3 (4.6-6.20); Red Cell Distribution Width 13.1 % (11.5-14.5); White Blood Count 10.2 K/mm3 (4.5-10.0)
[2024-09-01 03:44] LABS: Alanine Aminotransferase 14 U/L (6-50); Albumin Level 4.1 g/dL (3.5-5.1); Alkaline Phosphatase 73 U/L (38-126); Anion Gap 7 mmol/L (4-12); Aspartate Amino Transferase 19 U/L (17-59); Bilirubin,Total 0.5 mg/dL (0.2-1.3); Blood Urea Nitrogen 17 mg/dL (9-20); Carbon Dioxide 28 mmol/L (22-30); Chloride 104 mmol/L (98-107); Estimated CRCL calculation 95 ml/min; Estimated Glomerular Filt Rate > 60; Glucose 97 mg/dL (65-110); Potassium 3.3 mmol/L (3.4-5.0); Sodium 139 mmol/L (137-145)
[2024-09-01 03:54] LABS: Add Urine Microscopic? YES; Appearance Urine Clear (Clear); Bacteria Urine None Seen /hpf; Bilirubin Urine Negative (Negative); Blood Urine Negative (Negative); Calcium Oxalate Crystals Urine Present /hpf; Color Urine Yellow (Yellow); Glucose Urine UA Negative (Negative); Ketones Urine Trace mg/dL (Negative); Leukocyte Esterase Ur Negative LEU/UL (Negative); Mucus Urine Present /lpf; Need Manual Microscopic Reviewed; Nitrate Urine Negative (Negative); Non Pathogenic Casts 0-2; Protein Urine 1+ mg/dL (Negative); RBC Urine 0-2 /hpf (0-2); Specific Grav Ur 1.025 (1.001-1.035); Spermatozoa Urine Present; Squamous Epithelial Cell Urine None Seen /hpf (Few); WBC Urine 0-5 /hpf (0-3); pH Urine 5.5 (5.0-9.0)
[2024-09-01] MEDS: CEPHALEXIN 500 MG CAPSULE PO (04:12)
[2024-09-01] MEDS: SULFAMETHOXAZOLE/TRIMETHOPRIM 800/160 MG DS TABLET 1 TAB PO (04:12)
== END 2024-09-01 04:17 | disposition home or self-care (01) ==
PROVIDERS: Emergency Provider Emergency Medicine
DX: L03.313 Cellulitis of chest wall (principal); F41.9 Anxiety disorder, unspecified; Z79.899 Other long term (current) drug therapy
CPT/HCPCS: 36415; 80053; 81001; 85025; 99283; A9270